=== PATIENT | male | born 1995 | race Caucasian/White ===

== ENCOUNTER 2016-10-02 12:03 | Emergency (ER) | payer OTHER ==
[2016-10-02 12:14] VITALS: BP 118/62; PULSE 76; RESP 16; TEMP 99.3; O2SAT 96
[2016-10-02] MEDS ORDERED: IBUPROFEN 600 MG TAB PO ONE (12:21)
--- NOTE | 2016-10-02 12:30 | EDPHY ---
H & P HPI/ROS: CHIEF COMPLAINT: Right ankle pain History by patient HISTORY OF PRESENT ILLNESS: 21-year-old man presents complaining of pain and swelling in his right ankle after falling approximately 10 feet while bouldering at an indoor climbing gym yesterday evening. He landed on soft mats on the lateral edge of his foot, inverting his ankle. He says he can walk only by bearing weight on his toes. He has not taken anything for pain. He denies any other pain or injury. REVIEW OF SYSTEMS: As in HPI, and all other systems reviewed and are negative Smoking Status: Never smoked Physical Exam: General Appearance: Alert and no distress. Eyes: Pupils equal and round no injection. Musculoskeletal: Neck is supple and nontender. Extremities: Right ankle positive ecchymoses on the medial side, positive swelling on the lateral side, positive posterior medial and posterior lateral malleolar tenderness, no proximal fibular tenderness, full range of motion of his right knee, full range of motion of ankle with pain, DP pulses 2+ and equal bilaterally, wiggles all toes, distal cap refill less than 2 seconds, distal sensation intact. Skin: No rashes or lesions. Constitutional: Initial Vital Signs Temperature (C) 37.4 C 10/02/16 12:10 Heart Rate 76 10/02/16 12:10 Respiratory Rate 16 10/02/16 12:10 Blood Pressure 118/62 10/02/16 12:10 O2 Sat (%) 96 10/02/16 12:10 O2 Delivery Mode Room Air Allergies/Adverse Reactions: No Known Allergies Allergy (Verified 10/02/16 12:09) Home Medications: Medication Instructions Recorded NK [No Known Home Meds] 08/17/14 MDM/Departure - MDM Imaging: I viewed and interpreted images myself Medications Given: Discontinued Medications Ibuprofen (Motrin) 600 mg PO EDNOW ONE Stop: 10/02/16 12:22 Last Admin: 10/02/16 12:31 Dose: 600 mg ED Course/Re-evaluation: 21-year-old presents with right ankle pain swelling and ecchymoses after fall from height. He was given ibuprofen with some improvement. Preliminary x-ray reading shows no obvious fracture however I was unable to view this on proper monitor due to PACS down time. Patient's ankle is immobilized with a stirrup brace and we discussed home care including rest, ice, immobilization and anti- inflammatory pain medicine. I instructed patient will call him if the official x-ray read shows any evidence of fracture. Patient can weight bear as tolerated. He is given Orthopedics referral for follow-up as well. - Depart Disposition: Home, Routine, Self-Care Clinical Impression: Moderate right ankle sprain Qualifiers: Encounter type: initial encounter Qualified Code(s): S93.401A - Sprain of unspecified ligament of right ankle, initial encounter Instructions: Ankle Sprain (ED) Additional Instructions: You were seen by Dr. Tanya Haro today. Return for any worsening or new concerns. Please follow up with Orthopedics and physical therapy if no improvement. Referrals: NONE *PRIMARY CARE P,. [Primary Care Provider] - As per Instructions
== END 2016-10-02 13:05 | disposition home or self-care (01) ==
LOC: CED 12:03
DX: S93.401A Sprain of unspecified ligament of right ankle, initial encounter (principal); W17.89XA Other fall from one level to another, initial encounter; Y92.89 Other specified places as the place of occurrence of the external cause
CPT/HCPCS: 73610-PO; L4350